=== PATIENT | female | born 1995 ===

== ENCOUNTER 2023-06-14 21:30 | Emergency (ER) | payer BC ==
[2023-06-14 21:36] VITALS: RESP 18; BMI 25.4
[2023-06-14] MEDS ORDERED: SODIUM CHLORIDE 0.9% 500 ML INFUS.BAG IV ONE (21:51)
[2023-06-14] MEDS ORDERED: FAMOTIDINE 20 MG/50 ML IVPB 20 MG/50 ML MG IVPB ONE ×2 (21:51→22:03)
[2023-06-14] MEDS ORDERED: ACETAMINOPHEN 1000 MG/100 ML BAG IVPB ONE (21:53)
[2023-06-14] MEDS ORDERED: MAG HYDROX/AL HYDROX/SIMETH 30 ML UNIT-DOSE CUP PO ONE (21:53)
[2023-06-14] MEDS ORDERED: ACETAMINOPHEN INJECTION 100 ML IVPB ONE (22:03)
[2023-06-14] MEDS ORDERED: MAG HYDROX/AL HYDROX/SIMETH 30 ML UNIT-DOSE CUP ONE (22:03)
[2023-06-14 22:35] LABS: BASO % 0.4 % (0-2.0); HEMATOCRIT 36.2 % (32.4-45.2); HEMOGLOBIN 11.9 GM/dL (10.7-15.3); LYMPH % 5.4 % (8-40); MCH 28.7 pg (25.7-33.7); MCHC 32.9 g/dl (32.0-36.0); MEAN CELL VOLUME 87.3 fl (80-96); MEAN PLT VOLUME 7.4 fl (7.5-11.1); MONO % 2.4 % (3.8-10.2); NEUT % 90.8 % (42.8-82.8); PLATELET COUNT 392 10^3/uL (134-434); RBC 4.15 M/mm3 (3.60-5.2); RDW 13.4 % (11.6-15.6); WHITE BLOOD COUNT 11.2 K/mm3 (4.0-10.0)
[2023-06-14 22:47] LABS: POTASSIUM 3.8 mmol/L (3.5-5.1)
[2023-06-14 22:49] LABS: CALCIUM 8.6 mg/dL (8.5-10.1)
[2023-06-14 22:50] LABS: ALBUMIN 3.9 g/dl (3.4-5.0); BLOOD UREA NITROGEN 8.7 mg/dL (7-18)
[2023-06-14 22:53] LABS: CREATININE 0.6 mg/dL (0.55-1.3)
[2023-06-14 22:54] LABS: BILIRUBIN,TOTAL 0.4 mg/dL (0.2-1); TOT PROT 8.2 g/dl (6.4-8.2)
[2023-06-14 23:13] LABS: ANISOCYTOSIS 1+; MACROCYTOSIS 0
[2023-06-14 23:40] VITALS: BP 108/62; PULSE 98; TEMP 99
== END 2023-06-15 | disposition home or self-care (01) ==
LOC: JER 21:30
PROC: 3E033GC Introduction of Other Therapeutic Substance into Peripheral Vein, Percutaneous Approach (ICD-10-PCS; principal; 2023-06-14)
PROC: 3E033NZ Introduction of Analgesics, Hypnotics, Sedatives into Peripheral Vein, Percutaneous Approach (ICD-10-PCS; 2023-06-14)
DX: R51.9 Headache, unspecified (principal); R10.13 Epigastric pain; B34.9 Viral infection, unspecified; R11.2 Nausea with vomiting, unspecified; Z20.822 Contact with and (suspected) exposure to COVID-19
CPT/HCPCS: 0241U-QW; 36415; 71046-TC-FY; 80053; 83690; 84703; 85025; 99284-25

== ENCOUNTER 2023-07-24 21:30 | Emergency (ER) | payer OTHER, BC ==
[2023-07-24 21:33] VITALS: BP 107/72; PULSE 74; RESP 18; TEMP 98; BMI 26.2
[2023-07-24] MEDS ORDERED: HIV POST EXPOSURE PROPHYLAXIS KIT PO ONE ×2 (22:23→23:38)
[2023-07-24] MEDS ORDERED: TETANUS AND DIPHTHERIA TOXOID 0.5 ML DISP.SYRIN IM ONE (22:23)
[2023-07-24] MEDS ORDERED: HEPATITIS B IMMUNE GLOBULIN 5 ML VIAL IM ONE (22:23)
[2023-07-24 23:04] LABS: BASO % 0.7 % (0-2.0); EOS % 4.2 % (0-4.5); HEMATOCRIT 37.9 % (32.4-45.2); HEMOGLOBIN 12.4 GM/dL (10.7-15.3); LYMPH % 26.9 % (8-40); MCH 28.5 pg (25.7-33.7); MCHC 32.7 g/dl (32.0-36.0); MEAN CELL VOLUME 86.9 fl (80-96); MONO % 6.4 % (3.8-10.2); NEUT % 61.8 % (42.8-82.8); PLATELET COUNT 407 10^3/uL (134-434); RBC 4.37 M/mm3 (3.60-5.2); RDW 13.3 % (11.6-15.6); WHITE BLOOD COUNT 8.3 K/mm3 (4.0-10.0)
[2023-07-24 23:25] LABS: POTASSIUM 3.9 mmol/L (3.5-5.1)
[2023-07-24 23:27] LABS: BLOOD UREA NITROGEN 6.8 mg/dL (7-18); CALCIUM 9.3 mg/dL (8.5-10.1)
[2023-07-24 23:30] LABS: CREATININE 0.5 mg/dL (0.55-1.3)
[2023-07-24 23:32] LABS: BILIRUBIN,TOTAL 0.3 mg/dL (0.2-1); TOT PROT 8.6 g/dl (6.4-8.2)
[2023-07-25 00:11] LABS: PHOSPHOROUS 3.3 mg/dL (2.5-4.9); URIC ACID 2.5 mg/dL (2.6-7.2)
[2023-07-25 00:21] LABS: HIV INTERPRETATION NEGATIVE (NEGATIVE)
== END 2023-07-25 00:10 | disposition home or self-care (01) ==
LOC: JER 21:30
DX: S61.231A Puncture wound without foreign body of left index finger without damage to nail, initial encounter (principal); W46.1XXA Contact with contaminated hypodermic needle, initial encounter; Y93.89 Activity, other specified; Y92.531 Health care provider office as the place of occurrence of the external cause; Z20.6 Contact with and (suspected) exposure to human immunodeficiency virus [HIV]
CPT/HCPCS: 36415; 80053; 82465; 82977; 83615; 84100; 84478; 84550; 84703; 85025; 86704; 86780; 86803; 87340; 87389; 87517; 99283-25

== ENCOUNTER 2023-11-04 08:41 | Emergency (ER) | payer BC, OTHER ==
[2023-11-04 09:02] VITALS: BP 112/71; PULSE 64; RESP 18; TEMP 97.8; BMI 24.9
[2023-11-04 09:23] LABS: PH,URINE 7.5 (5.0-8.0); URINE APPEARANCE CLOUDY; URINE BILIRUBIN NEGATIVE (NEGATIVE); URINE COLOR YELLOW; URINE GLUCOSE (UA) NEGATIVE (NEGATIVE); URINE KETONE NEGATIVE (NEGATIVE); URINE LEUK ESTERASE NEGATIVE (NEGATIVE); URINE NITRITE NEGATIVE (NEGATIVE); URINE PROTEIN NEGATIVE (NEGATIVE)
[2023-11-04 09:24] LABS: HCG,QUALITATIVE URINE Positive
[2023-11-04 09:32] LABS: INR 1.04 (0.83-1.09); PROTHROMBIN TIME (PATIENT) 12.1 SEC (9.7-13.0)
[2023-11-04 09:34] LABS: ACTIVATED PTT 30.2 SECONDS (25.2-36.5)
[2023-11-04 09:44] LABS: BASO % 0.7 % (0-2.0); EOS % 1.6 % (0-4.5); HEMATOCRIT 33.4 % (32.4-45.2); HEMOGLOBIN 10.9 GM/dL (10.7-15.3); LYMPH % 23.2 % (8-40); MCH 28.4 pg (25.7-33.7); MCHC 32.8 g/dl (32.0-36.0); MEAN CELL VOLUME 86.8 fl (80-96); MEAN PLT VOLUME 7.5 fl (7.5-11.1); NEUT % 66.5 % (42.8-82.8); PLATELET COUNT 414 10^3/uL (134-434); RBC 3.85 M/mm3 (3.60-5.2); RDW 13.2 % (11.6-15.6); WHITE BLOOD COUNT 7.5 K/mm3 (4.0-10.0)
[2023-11-04 10:01] LABS: BLOOD UREA NITROGEN 8.3 mg/dL (7-18); CALCIUM 9.2 mg/dL (8.5-10.1)
[2023-11-04 10:02] LABS: ALBUMIN 3.7 g/dl (3.4-5.0)
[2023-11-04 10:04] LABS: CREATININE 0.5 mg/dL (0.55-1.3)
[2023-11-04 10:05] LABS: TOT PROT 7.9 g/dl (6.4-8.2)
[2023-11-04 10:06] LABS: BILIRUBIN,TOTAL 0.4 mg/dL (0.2-1)
== END 2023-11-04 11:58 | disposition home or self-care (01) ==
LOC: JER 08:41
DX: O26.891 Other specified pregnancy related conditions, first trimester (principal); R10.2 Pelvic and perineal pain; Z3A.01 Less than 8 weeks gestation of pregnancy
CPT/HCPCS: 36415; 76817-TC; 80053; 81003; 84702; 84703; 85025; 85610; 85730; 86850; 86900; 86901; 99284-25